=== PATIENT | male | born 1940 | race Caucasian/White ===

== ENCOUNTER → 2016-08-20 | Day surgery (SDC) | payer OTHER ==
[2016-08-10 09:34] VITALS: BMI 21.0
--- NOTE | 2016-08-10 10:00 | PAT Medication Instructions ---
Service Date Aug 10, 2016. Current Home Medication List Acetaminophen (Tylenol), 1 TAB PO PRN Alendronate Sodium (Alendronate Sodium), 1 TAB PO WK Amlodipine (Norvasc), 10 MG PO QAM Calcitriol (Rocaltrol Cap), 0.25 MCG PO QAM Cholecalciferol (Vitamin D3), 1 CAP PO QAM Cranberry-Vitamin C (Azo Cranbery Urinary Trac 250-60 mg), 1 CAP PO QAM Fenofibrate (Tricor ), 134 MG PO DAILY Levothyroxine Sodium (Synthroid), 50 MCG PO QAM Losartan Potassium (Losartan Potassium), 50 MG PO QAM Magnesium Oxide (Mg Supplement (Magox 400), 1 TAB PO TID Oxycodone/Acetaminophen 5MG/325MG (Percocet 5MG/325MG), 1-2 TABLETS PO Q4H PRN for Pain Oyster Shell (Calcium), 1 TAB PO TID Phenazopyridine HCl (Pyridium), 200 MG PO TID PRN for PRN Tamsulosin HCl (Tamsulosin HCl), 0.4 MG PO QPM [Lupron Depot], 45 MG IM UD [Oxybutynin], 5 MG PO TID Medication Instructions For Your Scheduled Surgery - Continue as usual: Alendronate Sodium (Alendronate Sodium), 1 TAB PO WK (Saturdays) [Lupron Depot], 45 MG IM UD - Hold the following medications the morning of surgery: [Oxybutynin], 5 MG PO TID Oyster Shell (Calcium), 1 TAB PO TID Magnesium Oxide (Mg Supplement (Magox 400), 1 TAB PO TID Calcitriol (Rocaltrol Cap), 0.25 MCG PO QAM Cholecalciferol (Vitamin D3), 1 CAP PO QAM Fenofibrate (Tricor ), 134 MG PO DAILY Losartan Potassium (Losartan Potassium), 50 MG PO QAM Cranberry-Vitamin C (Azo Cranbery Urinary Trac 250-60 mg), 1 CAP PO QAM Amlodipine (Norvasc), 10 MG PO QAM - Take the following medications the morning of surgery with a sip of water: Acetaminophen (Tylenol), 1 TAB PO PRN Phenazopyridine HCl (Pyridium), 200 MG PO TID PRN for PRN Levothyroxine Sodium (Synthroid), 50 MCG PO QAM Oxycodone/Acetaminophen 5MG/325MG (Percocet 5MG/325MG), 1-2 TABLETS PO Q4H PRN for Pain (okay to take up to 4 hours prior to surgery if needed) - Take the following medications as scheduled the night before surgery: Acetaminophen (Tylenol), 1 TAB PO PRN [Oxybutynin], 5 MG PO TID' Tamsulosin HCl (Tamsulosin HCl), 0.4 MG PO QPM Phenazopyridine HCl (Pyridium), 200 MG PO TID PRN for PRN Oyster Shell (Calcium), 1 TAB PO TID Magnesium Oxide (Mg Supplement (Magox 400), 1 TAB PO TID Oxycodone/Acetaminophen 5MG/325MG (Percocet 5MG/325MG), 1-2 TABLETS PO Q4H PRN for Pain If you have any questions please call us at [phone] (Leanna Clifford PA-C ) or [phone] or [phone]
[2016-08-10 10:36] LABS: BASO % 0.4 %; BASO ABS # 0.02 K/uL (0-0.2); COMPLETE YES; EOS % 3.9 %; HEMATOCRIT 35.1 % (42-52); IG% 0.2 %; LYMPH ABS # 0.92 K/uL (1.2-3.4); MEAN CELL VOLUME 93.6 fL (80-100); MEAN CORPUSCULAR HEMOGLOBIN 31.5 pg (25-34); MEAN CORPUSCULAR HGB CONC 33.6 g/dl (32-36); MEAN PLATELET VOLUME 9.3 fL (7.4-10.4); NEUT % 68.5 %; PLATELET COUNT 282 K/uL (130-400); RED BLOOD COUNT 3.75 M/uL (4.7-6.1); WHITE BLOOD COUNT 5.42 K/uL (4.8-10.8)
[2016-08-10 10:41] LABS: URINE APPEARANCE CLOUDY (CLEAR); URINE BILIRUBIN NEG (NEG); URINE COLOR YELLOW; URINE EPITHELIAL CELL AUTO 0-5 /lpf (0-5); URINE NITRITE POS (NEG); URINE SPECIFIC GRAVITY 1.013 (1.000-1.030); UROBILINOGEN NEG (NEG)
[2016-08-10 10:42] LABS: MANUAL MICROSCOPIC REQUIRED? NO; REVIEW REQ? YES
[2016-08-10 11:16] LABS: BUN/CREATININE RATIO 19.4 (10-20); CALCIUM 8.3 mg/dl (8.5-10.1); CREATININE 1.7 mg/dl (0.60-1.40); POTASSIUM 4.8 mmol/L (3.5-5.1)
[2016-08-10 11:20] LABS: PROSTATE SPECIFIC ANTIGEN 0.303 ng/ml (0.000-4.000)
[~2016-08-20] VITALS: Ht 167.6 cm; Wt 61.1 kg
[~2016-08-20] MED LIST: ACET-1256 PO; ALEN5SOL PO; AMLO-114 PO; ATROPINE SULFATE 0.1 MG/ML 5ML SYR IV PRN; CALC0.25 PO; CALC1CAP24 PO; CHOL2000 PO; CIPROFLOXACIN / D5W 400 MG IV SCH; CONRAY 30% 150ML BOTTLE INSTIL ONE; CRAN1CAP24 PO; CZR50 PO; EpHEDrine SULFATE INJ 50 MG/ML AMP IV PRN; EpHEDrine SULFATE INJ 50 MG/ML AMP ONE; FENO134C2 PO; FENTANYL CITRATE INJ 50 MCG/1 ML 2 ML VIAL ONE; FLM4 PO; FSM70 PO; LACTATED RINGER'S 1000ML 1,000 ML IV SCH; LEVO50TA PO; LIDOCAINE HCL 2% 2 ML VIAL (20MG/ML) ONE; LUPRON DEPOT IM; MAGN10TA PO; MIDAZOLAM HCL 1 MG/ML 2ML VIAL ONE; NITR-5 PO; ONDANSETRON INJ 2 MG/ML 2 ML VIAL ONE; OXYBUTYNIN PO; OXYC-57 PO; OXYCODONE/ACETAMINOPHEN 5-325 TAB PO PRN; OYST500T47 PO; PHEN-876 PO; PROPOFOL IV EMULSION 10 MG/ML 20 ML VIAL IV ONE; PUMP1CAP PO
[2016-08-20 11:46] VITALS: BMI 21.0
[2016-08-20 11:49] VITALS: BP 147/89; PULSE 67; TEMP 36.5; Ht 167.6 cm; Wt 61.1 kg
--- NOTE | 2016-08-20 12:54 | History & Physical Bridge Note ---
H&P Re-Evaluation Bridge Note: I have examined the patient, reviewed the History & Physical and in the interval since the performance of the History & Physical I have noted the following changes of clinical significance: No changes noted
--- NOTE | 2016-08-20 14:00 | [facility] Post Operative Brief Note ---
Immediate Operative Summary Operative Date Aug 20, 2016. Pre-Operative Diagnosis Bilateral Ureteral Obstruction Post-Operative Diagnosis Bilateral Ureteral Obstruction Procedure(s) Performed Cystoscopy, Bilateral Retrograde Pyleogram with Bilateral Ureteral Stent Change Surgeon Dr. Jose Guadalupe Patel Web Developer Programmer Surgeon(s) None Estimated Blood Loss Zero Findings bilateral stents Specimens No Specimen Drains 6f multi length stents
--- NOTE | 2016-08-20 14:03 | Discharge Instructions ---
Discharge Instructions Visit Reason for Visit: Hydronephrosis Discharge Discharge Diagnosis / Problem: ureteral obstruction Discharge Goals Goal(s): Therapeutic intervention Activity Recommendations Activity Limitations: resume your previous activity (take it easy today) Anesthesia . Post Anesthesia Instructions: If you have had General Anesthesia or IV Sedation: * Do not drive today. * Resume driving when surgeon permits. * Do not make important decisions or sign legal documents today. * Call surgeon for: 1. Temperature elevations greater than 101 degrees F. 2. Uncontrollable pain. 3. Excessive bleeding. 4. Persistent nausea and vomiting. 5. Medication intolerance (nausea, vomiting or rash). * For nausea and vomiting use only clear liquids such as: tea, soda, bouillon until nausea subsides, then gradually increase diet as tolerated. * If you have any concerns or questions, call your surgeon's office. If physician is unavailable and it is an emergency, call 911 or go to the nearest emergency room. . Diet Recommendations Recommended Home Diet: resume previous diet Procedures Procedures Performed: Cystoscopy, Bilateral Retrograde Pyleogram with Bilateral Ureteral Stent Change Pending Studies Studies pending at discharge: no Medical Emergencies . Who to Call and When: Medical Emergencies: If at any time you feel your situation is an emergency, please call 911 immediately. . Non-Emergent Contact Non-Emergency issues call your: Urologist . . "Provider Documentation" section prepared by Jose Guadalupe Patel.
--- NOTE | 2016-08-20 14:12 | DIAGNOSTIC IMAGING REPORT ---
RETROGRADE INCLUDES KUB CLINICAL HISTORY: RETROGRADE BILATERAL STENTS COMPARISON STUDY: 08/20/2016 FINDINGS: 2 intraoperative fluoroscopic spot images are provided for interpretation. 8 seconds of fluoroscopic time was utilized. Image #2 demonstrates a guidewire within a left lower pole calyx. There is left-sided hydronephrosis. Image #3 demonstrates the proximal portion of a right-sided nephroureteral stent. There is right-sided hydronephrosis. IMPRESSION: Bilateral hydronephrosis. Electronically signed by: Wilbert Samuel M.D. 08/20/2016 2:10 PM Dictated Date/Time: 08/20/2016 2:09 PM
--- NOTE | 2016-08-20 14:26 | Anesthesiology Progress Note ---
Anesthesia Post Op Note Date & Time Aug 20, 2016 at 14:26 Vital Signs Vital Signs Past 12 Hours Date Time Temp Pulse Resp B/P Pulse Ox O2 Delivery O2 Flow Rate FiO2 08/20/16 11:49 36.5 67 16 147/89 Room Air Notes Mental Status: alert / awake / arousable, participated in evaluation Pt Amnestic to Procedure: Yes Nausea / Vomiting: adequately controlled Pain: adequately controlled Airway Patency, RR, SpO2: stable & adequate BP & HR: stable & adequate Hydration State: stable & adequate Anesthetic Complications: no major complications apparent
[2016-08-20 14:55] VITALS: BP 123/77; PULSE 63; TEMP 37; O2SAT 93
[2016-08-20 15:25] VITALS: BP 130/85; PULSE 74; O2SAT 95
[2016-08-20 15:55] VITALS: BP 135/80; PULSE 68; TEMP 36.8; O2SAT 94
--- NOTE | 2016-08-21 12:19 | OPERATIVE REPORT ---
DATE OF OPERATION: 08/20/2016 PREOPERATIVE DIAGNOSIS: Bilateral ureteral obstruction secondary to metastatic prostate cancer. POSTOPERATIVE DIAGNOSIS: Same. PROCEDURE: Cystoscopy, bilateral retrograde pyelograms, bilateral stent exchanges. FINDINGS: Cystoscopic exam revealed normal urethra. Prostatic fossa was open. Bladder showed some edema from the stents. Left and right retrograde showed hydronephrosis. SURGEON: Dr. Patel. ANESTHESIA: General. DRAINS: 6 Portuguese by multilength left and right ureteral stents. COMPLICATIONS: None. SPECIMENS: Explanted stents left and right. INDICATIONS: The patient is a 76-year-old white male with metastatic prostate cancer causing bilateral ureteral obstruction, who has been treated with stent exchanges. He is being brought in now for stent exchange. PROCEDURE: After the induction of an adequate general anesthetic and appropriate time-out, the patient was placed in the dorsal lithotomy position, lower abdomen and genitalia were prepped with Hibiclens and draped in a sterile fashion. Using a 22-Portuguese cystoscope, routine cystoscopic exam was performed with the above noted findings with the 30 and 70 degree lenses. Next, the left stent was grasped, brought out through the urethra and then through the stent a 0.038 guidewire was passed under fluoroscopic guidance through the stent up the left ureter until positioned in the renal pelvis. The stent was removed. A 5-Portuguese Fulton catheter was advanced over the wire. The wire was removed and retrograde pyelogram was done to confirm placement of the wire within the renal pelvis. Once this was confirmed, the wire was rethreaded through the Fulton catheter, which was removed. The guidewire was then rethreaded through the cystoscope and a 6-Portuguese multilength stent was passed over the guidewire under fluoroscopic guidance until positioned in the renal pelvis. The guidewire was removed. There was a good curl at the bladder level. An identical procedure was then performed on the right hand side. After completing both stent exchanges, the patient's bladder was drained, cystoscope and sheath were removed. All needle, sponge and instrument counts were correct at the end of the case. The patient tolerated the procedure well and went to the recovery room in stable condition. I attest to the content of the Intraoperative Record and any orders documented therein. Any exceptio ns are noted below.
== END | disposition home or self-care (01) ==
LOC: C.ACU 11:17
PROVIDERS: ATTEND Urology
DX: C61 Malignant neoplasm of prostate (principal); N13.1 Hydronephrosis with ureteral stricture, not elsewhere classified; E03.9 Hypothyroidism, unspecified; J44.9 Chronic obstructive pulmonary disease, unspecified; I10 Essential (primary) hypertension; D64.9 Anemia, unspecified

== ENCOUNTER 2017-03-04 06:53 | Day surgery (SDC) | payer OTHER ==
[2017-02-18 11:35] VITALS: BMI 21.0
--- NOTE | 2017-02-18 12:03 | PAT Medication Instructions ---
Service Date Feb 18, 2017. Current Home Medication List Acetaminophen (Tylenol), 1 TAB PO PRN Alendronate Sodium (Alendronate Sodium), 1 TAB PO SATURDAY Amlodipine (Norvasc), 10 MG PO QAM Calcitriol (Rocaltrol Cap), 0.25 MCG PO QAM Calcium (Calcium), 500 MG PO QAM Cholecalciferol (Vitamin D3), 1 CAP PO QAM Cranberry-Vitamin C (Azo Cranbery Urinary Trac 250-60 mg), 1 CAP PO QAM Levothyroxine Sodium (Synthroid), 50 MCG PO QAM Losartan Potassium (Losartan Potassium), 50 MG PO QAM Magnesium Oxide (Mg Supplement (Magox 400), 1 TAB PO TID Tamsulosin HCl (Tamsulosin HCl), 0.4 MG PO QPM [Lupron Depot], 45 MG IM UD [Oxybutynin], 5 MG PO TID Medication Instructions For Your Scheduled Surgery - Continue as directed: [Lupron Depot], 45 MG IM UD every 6 months Alendronate Sodium (Alendronate Sodium), 1 TAB PO SATURDAY - Hold the following medications 02/19/2017: Cranberry-Vitamin C (Azo Cranbery Urinary Trac 250-60 mg), 1 CAP PO QAM - Hold the following medications the morning of surgery: [Oxybutynin], 5 MG PO TID Magnesium Oxide (Mg Supplement (Magox 400), 1 TAB PO TID Losartan Potassium (Losartan Potassium), 50 MG PO QAM Calcitriol (Rocaltrol Cap), 0.25 MCG PO QAM Calcium (Calcium), 500 MG PO QAM Cholecalciferol (Vitamin D3), 1 CAP PO QAM - Take the following medications the morning of surgery with a sip of water: Levothyroxine Sodium (Synthroid), 50 MCG PO QAM Amlodipine (Norvasc), 10 MG PO QAM Acetaminophen (Tylenol), 1 TAB PO PRN (if needed) - Take the following medications as scheduled the night before surgery: [Oxybutynin], 5 MG PO TID Tamsulosin HCl (Tamsulosin HCl), 0.4 MG PO QPM Magnesium Oxide (Mg Supplement (Magox 400), 1 TAB PO TID Acetaminophen (Tylenol), 1 TAB PO PRN (if needed) If you have any questions please call us at [phone] or [phone] or [phone]
[2017-02-18 12:21] LABS: BASO % 0.9 %; BASO ABS # 0.05 K/uL (0-0.2); COMPLETE YES; EOS % 2.8 %; HEMATOCRIT 31.2 % (42-52); IG% 0.2 %; LYMPH % 18.7 %; MEAN CELL VOLUME 96.6 fL (80-100); MEAN CORPUSCULAR HEMOGLOBIN 32.2 pg (25-34); MEAN CORPUSCULAR HGB CONC 33.3 g/dl (32-36); MONO % 10.1 %; NEUT % 67.3 %; PLATELET COUNT 284 K/uL (130-400); RED BLOOD COUNT 3.23 M/uL (4.7-6.1); WHITE BLOOD COUNT 5.34 K/uL (4.8-10.8)
[2017-02-18 12:44] LABS: BUN/CREATININE RATIO 16.1 (10-20); CALCIUM 8.3 mg/dl (8.5-10.1); CREATININE 2.5 mg/dl (0.60-1.40); POTASSIUM 4.4 mmol/L (3.5-5.1)
--- NOTE | 2017-02-18 13:17 | DIAGNOSTIC IMAGING REPORT ---
CHEST PREADMISSION(PA/LAT) CLINICAL HISTORY: 76 years-old Male presenting with preadmission chest x-ray. TECHNIQUE: PA and lateral views of the chest were obtained. COMPARISON: None. FINDINGS: Cardiomediastinal silhouette remarkable for tortuosity of the descending thoracic aorta. Lungs and pleural spaces clear. Osseous structures normal. Partially visualized bilateral nephroureteral tubes. IMPRESSION: 1. No acute cardiopulmonary disease. Electronically signed by: Carlos Harrell 02/18/2017 1:16 PM Dictated Date/Time: 02/18/2017 1:14 PM
[~2017-03-04] VITALS: Ht 167.6 cm; Wt 59.2 kg
[~2017-03-04 06:53] MED LIST changes: -ALEN5SOL PO; -ATROPINE SULFATE 0.1 MG/ML 5ML SYR IV PRN; -CONRAY 30% 150ML BOTTLE INSTIL ONE; -EpHEDrine SULFATE INJ 50 MG/ML AMP IV PRN; -EpHEDrine SULFATE INJ 50 MG/ML AMP ONE; -FENO134C2 PO; -FENTANYL CITRATE INJ 50 MCG/1 ML 2 ML VIAL ONE; -LIDOCAINE HCL 2% 2 ML VIAL (20MG/ML) ONE; -MIDAZOLAM HCL 1 MG/ML 2ML VIAL ONE; -NITR-5 PO; -ONDANSETRON INJ 2 MG/ML 2 ML VIAL ONE; -OXYC-57 PO; -OXYCODONE/ACETAMINOPHEN 5-325 TAB PO PRN; -OYST500T47 PO; -PHEN-876 PO; -PROPOFOL IV EMULSION 10 MG/ML 20 ML VIAL IV ONE; -PUMP1CAP PO
[2017-03-04 07:16] VITALS: BP 125/80; PULSE 80; TEMP 36.7; O2SAT 96; Ht 167.6 cm; Wt 59.2 kg
[2017-03-04] MEDS ORDERED: CONRAY 30% 150ML BOTTLE ONE (07:48)
[2017-03-04] MEDS ORDERED: EpHEDrine SULFATE INJ 50 MG/ML AMP IV PRN (08:15)
[2017-03-04] MEDS ORDERED: HYDROmorphone INJ 1 MG/ML SYR IV PRN (08:15)
[2017-03-04] MEDS ORDERED: ONDANSETRON INJ 2 MG/ML 2 ML VIAL IV PRN (08:15)
[2017-03-04] MEDS ORDERED: ATROPINE SULFATE 0.1 MG/ML 5ML SYR IV PRN (08:15)
[2017-03-04] MEDS ORDERED: MEPERIDINE HCL 25 MG/ML CARP IV PRN (08:15)
[2017-03-04] MEDS ORDERED: FENTANYL CITRATE INJ 50 MCG/1 ML 2 ML VIAL IV PRN (08:15)
[2017-03-04] MEDS ORDERED: LABETALOL HCL IV 5 MG/ML 20ML IV PRN (08:15)
[2017-03-04] MEDS ORDERED: PROPOFOL IV EMULSION 10 MG/ML 20 ML VIAL IV ONE (08:21)
[2017-03-04] MEDS ORDERED: ONDANSETRON INJ 2 MG/ML 2 ML VIAL ONE (08:21)
[2017-03-04] MEDS ORDERED: MIDAZOLAM HCL 1 MG/ML 2ML VIAL ONE (08:21)
[2017-03-04] MEDS ORDERED: FENTANYL CITRATE INJ 50 MCG/1 ML 2 ML VIAL ONE (08:21)
[2017-03-04] MEDS ORDERED: DEXAMETHASONE SOD INJ 4 MG/ML VIAL ONE (08:21)
[2017-03-04] MEDS ORDERED: LIDOCAINE HCL 2% 2 ML VIAL (20MG/ML) ONE (08:21)
[2017-03-04] MEDS ORDERED: EpHEDrine SULFATE 50MG/5ML SYR ONE (08:49)
--- NOTE | 2017-03-04 09:09 | [facility] Post Operative Brief Note ---
Immediate Operative Summary Operative Date Mar 04, 2017. Pre-Operative Diagnosis Bilateral ureteral obstruction Post-Operative Diagnosis Same Procedure(s) Performed Bilateral stent exchanges Surgeon Amanda Drug Room Clerk Surgeon(s) none Estimated Blood Loss none Findings bilateral hydronephrosis Specimens stents Drains 6f multilength stents Anesthesia gen Complication(s) None Disposition Recovery Room / PACU
[2017-03-04] MEDS ORDERED: OXYC-57 PO (09:10)
--- NOTE | 2017-03-04 09:11 | Discharge Instructions ---
Discharge Instructions Date of Service Mar 04, 2017. Visit Reason for Visit: Hydronephrosis Discharge Discharge Diagnosis / Problem: bilateral hydro Discharge Goals Goal(s): Therapeutic intervention Activity Recommendations Activity Limitations: resume your previous activity (take it easy today) Anesthesia . Post Anesthesia Instructions: If you have had General Anesthesia or IV Sedation: * Do not drive today. * Resume driving when surgeon permits. * Do not make important decisions or sign legal documents today. * Call surgeon for: 1. Temperature elevations greater than 101 degrees F. 2. Uncontrollable pain. 3. Excessive bleeding. 4. Persistent nausea and vomiting. 5. Medication intolerance (nausea, vomiting or rash). * For nausea and vomiting use only clear liquids such as: tea, soda, bouillon until nausea subsides, then gradually increase diet as tolerated. * If you have any concerns or questions, call your surgeon's office. If physician is unavailable and it is an emergency, call 911 or go to the nearest emergency room. . Diet Recommendations Recommended Home Diet: resume previous diet Procedures Procedures Performed: Bilateral stent exchanges Pending Studies Studies pending at discharge: no Medical Emergencies . Who to Call and When: Medical Emergencies: If at any time you feel your situation is an emergency, please call 911 immediately. . Non-Emergent Contact Non-Emergency issues call your: Urologist . . "Provider Documentation" section prepared by Jose Guadalupe Patel. . [place] Drug Monitoring Program Search Results: patient reviewed within database
--- NOTE | 2017-03-04 09:13 | DIAGNOSTIC IMAGING REPORT ---
RETROGRADE INCLUDES KUB CLINICAL HISTORY: 76 years-old Male presenting with BILAT STENT EXCHANGE. TECHNIQUE: 6 fluoroscopic spot image(s) obtained as part of intraoperative procedure. COMPARISON: 08/20/2016. FINDINGS/IMPRESSION: A guidewire was introduced into the left urinary collecting system to the level of the renal pelvis. Contrast was injected into the left renal collecting system, which was dilated calyceal blunting as on prior exam. A left ureteral stent was placed at the conclusion of the procedure. Subsequently a guidewire was introduced into the right urinary collecting system and similar findings of dilation calyceal blunting with stent exchange. Please see surgical report for further details. Fluoroscopy dosage (mGy): Not available. Fluoroscopy time: 1 minute 22 seconds. Number of fluoroscopic spot images: 6. Electronically signed by: Carlos Harrell M.D. 03/04/2017 9:11 AM Dictated Date/Time: 03/04/2017 9:09 AM
[2017-03-04] MEDS ORDERED: OXYCODONE/ACETAMINOPHEN 5-325 TAB PO PRN (09:15)
[2017-03-04 09:50] VITALS: BP 106/74; PULSE 90; TEMP 36.3; O2SAT 95
--- NOTE | 2017-03-04 10:02 | Anesthesiology Progress Note ---
Anesthesia Post Op Note Date & Time Mar 04, 2017 at 10:02 Vital Signs Pain Intensity: 0 Vital Signs Past 12 Hours Date Time Temp Pulse Resp B/P (MAP) Pulse Ox O2 Delivery O2 Flow Rate FiO2 03/04/17 09:50 36.3 90 18 106/74 95 Room Air 03/04/17 09:40 36.3 87 16 105/71 95 Room Air 03/04/17 09:35 36.3 91 16 109/75 94 Room Air 03/04/17 09:25 93 16 98/72 100 Oxymask 10 03/04/17 09:15 86 16 93/61 100 Oxymask 10 03/04/17 09:06 36.4 72 16 95/60 100 Oxymask 10 03/04/17 07:16 36.7 80 18 125/80 (95) 96 Room Air Notes Mental Status: alert / awake / arousable, participated in evaluation Pt Amnestic to Procedure: Yes Nausea / Vomiting: adequately controlled Pain: adequately controlled Airway Patency, RR, SpO2: stable & adequate BP & HR: stable & adequate Hydration State: stable & adequate Anesthetic Complications: no major complications apparent
[2017-03-04 10:20] VITALS: BP 103/70; PULSE 81; O2SAT 94
[2017-03-04 10:50] VITALS: BP 101/71; PULSE 85; TEMP 36.3; O2SAT 95
--- NOTE | 2017-03-04 13:14 | OPERATIVE REPORT ---
DATE OF OPERATION: 03/04/2017 PREOPERATIVE DIAGNOSIS: Bilateral ureteral obstruction secondary to metastatic prostate cancer. POSTOPERATIVE DIAGNOSIS: Same. PROCEDURES: Cystoscopy, bilateral retrograde pyelograms and bilateral stent exchanges. FINDINGS: Cystoscopic exam revealed normal anterior urethra. Prostatic fossa was large. Bladder showed some edema from the stents. Retrograde showed bilateral hydronephrosis. SURGEON: Dr. Jose Guadalupe Patel. ANESTHESIA: General. DRAINS: 6-Georgian multilength stents, left and right ureter. COMPLICATIONS: None. SPECIMENS: None. INDICATIONS: The patient is a 76-year-old white male with obstruction of both ureters from metastatic prostate cancer, who has been managed with stent exchanges. He is being brought in now for his stent exchange. DESCRIPTION OF PROCEDURE: After the induction of an adequate general anesthetic and appropriate time-out, the patient was placed in the dorsal lithotomy position. Lower abdomen and genitalia were prepped with Hibiclens and draped in a sterile fashion. Using a 22-Georgian cystoscope, a routine cystoscopic exam was performed with the above noted findings with the 30 and 70 degree lenses. Next, the left stent was grasped with alligator forceps and brought out the meatus. Then, under fluoroscopic guidance, a 0.03 guidewire was passed through this catheter and up the left ureter until positioned in the renal pelvis confirmed by fluoroscopy. The old stent was removed and a 5-Georgian open-ended catheter was passed over the wire until positioned in the renal pelvis. The wire was removed and a retrograde pyelogram was performed confirming that the wire was in the renal pelvis. After completing this, the guidewire was rethreaded through the open-ended catheter, which was removed and then rethreaded through the cystoscope and a 6-Georgian multilength stent was passed under fluoroscopic guidance up the left ureter until positioned in the renal pelvis. The guidewire was removed. There was good curl at the bladder level. An identical procedure was then performed on the right hand side. After completing both stent exchanges, the patient's bladder was drained. Cystoscope and sheath were removed. All needle, sponge and instrument counts were correct at the end of the case. The patient tolerated the procedure well and went to the recovery room in stable condition. I attest to the content of the Intraoperative Record and any orders documented therein. Any exception s are noted below.
== END 2017-03-04 10:45 | disposition home or self-care (01) ==
LOC: C.ACU 06:53
PROVIDERS: ATTEND Urology
DX: N13.1 Hydronephrosis with ureteral stricture, not elsewhere classified (principal); C61 Malignant neoplasm of prostate; I10 Essential (primary) hypertension; J44.9 Chronic obstructive pulmonary disease, unspecified; E78.5 Hyperlipidemia, unspecified; E83.42 Hypomagnesemia; E03.9 Hypothyroidism, unspecified; E83.51 Hypocalcemia; D50.9 Iron deficiency anemia, unspecified; E55.9 Vitamin D deficiency, unspecified; M81.0 Age-related osteoporosis without current pathological fracture; Z87.891 Personal history of nicotine dependence

== ENCOUNTER → 2017-07-17 | Outpatient (CLI) | payer OTHER ==
[~2017-07-17] MED LIST changes: -CIPROFLOXACIN / D5W 400 MG IV SCH; -LACTATED RINGER'S 1000ML 1,000 ML IV SCH; +OXYC-57 PO
[2017-07-17 18:19] LABS: COMPLETE YES; HEMATOCRIT 34.7 % (42-52); IG% 0.9 %; LYMPH % 4.5 %; LYMPH ABS # 0.58 K/uL (1.2-3.4); MEAN CELL VOLUME 98.3 fL (80-100); MEAN CORPUSCULAR HEMOGLOBIN 31.4 pg (25-34); MEAN PLATELET VOLUME 9.4 fL (7.4-10.4); MONO % 1.9 %; NEUT % 92.7 %; PLATELET COUNT 526 K/uL (130-400); RED BLOOD COUNT 3.53 M/uL (4.7-6.1); WHITE BLOOD COUNT 12.91 K/uL (4.8-10.8)
[2017-07-17 18:26] LABS: URINE APPEARANCE CLEAR (CLEAR); URINE BILIRUBIN NEG (NEG); URINE COLOR YELLOW; URINE NITRITE NEG (NEG); URINE SPECIFIC GRAVITY 1.015 (1.000-1.030); UROBILINOGEN NEG (NEG)
[2017-07-17 18:27] LABS: BLOOD UREA NITROGEN 40 mg/dl (7-18); CARBON DIOXIDE 25 mmol/L (21-32); CHLORIDE 104 mmol/L (98-107); CREATININE 2.08 mg/dl (0.60-1.40); GLUCOSE 136 mg/dl (70-99); SODIUM 135 mmol/L (136-145)
[2017-07-17 18:32] LABS: PROSTATE SPECIFIC ANTIGEN 0.798 ng/ml (0.000-4.000)
[2017-07-17 19:33] LABS: MANUAL MICROSCOPIC REQUIRED? NO; REVIEW REQ? NO
== END | disposition home or self-care (01) ==
LOC: C.LABMFLN 13:56
PROVIDERS: ATTEND Urology
DX: R33.9 Retention of urine, unspecified (principal); C61 Malignant neoplasm of prostate

== ENCOUNTER 2017-07-29 10:52 | Day surgery (SDC) | payer OTHER ==
[2017-07-23 08:28] VITALS: BMI 22.0
[~2017-07-29] VITALS: Ht 165.1 cm; Wt 61.4 kg
[~2017-07-29 10:52] MED LIST changes: +ADVIN25/60 INH; +ASPI81TA28 PO; +ATROPINE SULFATE 0.1 MG/ML 5ML SYR IV PRN; +DTR/5 PO; +EpHEDrine SULFATE INJ 50 MG/ML AMP IV PRN; +FENTANYL CITRATE INJ 50 MCG/1 ML 2 ML VIAL IV PRN; -MAGN10TA PO; +MAGN400T6 PO; +ONDANSETRON INJ 2 MG/ML 2 ML VIAL IV PRN; -OXYBUTYNIN PO; -OXYC-57 PO; +SODIUM CHLORIDE 0.9% 1000ML 1,000 ML IV SCH
[2017-07-29 11:55] VITALS: BP 147/96; PULSE 80; TEMP 37; O2SAT 95; Ht 165.1 cm; Wt 61.4 kg
[2017-07-29] MEDS: CIPROFLOXACIN / D5W 400 MG IV SCH ×3 (13:02→14:35)
[2017-07-29] MEDS ORDERED: FENTANYL CITRATE INJ 50 MCG/1 ML 2 ML VIAL ONE (14:28)
[2017-07-29] MEDS ORDERED: MIDAZOLAM HCL 1 MG/ML 2ML VIAL ONE (14:29)
[2017-07-29] MEDS ORDERED: PROPOFOL IV EMULSION 10 MG/ML 20 ML VIAL IV ONE (14:56)
[2017-07-29] MEDS ORDERED: CONRAY 30% 150ML BOTTLE ONE (14:56)
[2017-07-29] MEDS ORDERED: OXYC-57 PO (15:17)
--- NOTE | 2017-07-29 15:18 | Discharge Instructions ---
Discharge Instructions Date of Service Jul 29, 2017. Visit Reason for Visit: Hydronephrosis Discharge Discharge Diagnosis / Problem: Hydronephrosis Discharge Goals Goal(s): Therapeutic intervention Activity Recommendations Activity Limitations: resume your previous activity (take it eas today) Exercise/Sports Limitations: rest today May Resume Sexual Activity: when tolerated Shower/Bathe: no limitations Driving or Machine Use: resume 1 day after discharge Anesthesia . Post Anesthesia Instructions: If you have had General Anesthesia or IV Sedation: * Do not drive today. * Resume driving when surgeon permits. * Do not make important decisions or sign legal documents today. * Call surgeon for: 1. Temperature elevations greater than 101 degrees F. 2. Uncontrollable pain. 3. Excessive bleeding. 4. Persistent nausea and vomiting. 5. Medication intolerance (nausea, vomiting or rash). * For nausea and vomiting use only clear liquids such as: tea, soda, bouillon until nausea subsides, then gradually increase diet as tolerated. * If you have any concerns or questions, call your surgeon's office. If physician is unavailable and it is an emergency, call 911 or go to the nearest emergency room. . Diet Recommendations Recommended Home Diet: resume previous diet Procedures Procedures Performed: Cystoscopy, Bilateral Retrograde Pyelogram, Bilateral Stent Pending Studies Studies pending at discharge: no Medical Emergencies . Who to Call and When: Medical Emergencies: If at any time you feel your situation is an emergency, please call 911 immediately. . Non-Emergent Contact Non-Emergency issues call your: Urologist Call Non-Emergent contact if: temperature is above 101.5 . . "Provider Documentation" section prepared by Jose Guadalupe Patel. . [place] Drug Monitoring Program Search Results: patient reviewed within database
--- NOTE | 2017-07-29 15:28 | Anesthesiology Progress Note ---
Anesthesia Post Op Note Date & Time Jul 29, 2017 at 15:28 Vital Signs Pain Intensity: 0 Vital Signs Past 12 Hours Date Time Temp Pulse Resp B/P (MAP) Pulse Ox O2 Delivery O2 Flow Rate FiO2 07/29/17 15:16 37.0 80 20 91/55 99 Room Air 07/29/17 11:55 37 80 20 147/96 (113) 95 Room Air Notes Mental Status: alert / awake / arousable, participated in evaluation Pt Amnestic to Procedure: Yes Nausea / Vomiting: adequately controlled Pain: adequately controlled Airway Patency, RR, SpO2: stable & adequate BP & HR: stable & adequate Hydration State: stable & adequate Anesthetic Complications: no major complications apparent
[2017-07-29] MEDS ORDERED: OXYCODONE/ACETAMINOPHEN 5-325 TAB PO PRN (15:30)
[2017-07-29 15:40] VITALS: BP 137/79; PULSE 77; TEMP 36.8; O2SAT 96
--- NOTE | 2017-07-29 15:56 | DIAGNOSTIC IMAGING REPORT ---
RETROGRADE INCLUDES KUB CLINICAL HISTORY: BILATERAL RETROGRADES AND STENTS COMPARISON STUDY: 03/04/2017 FINDINGS: 4 fluoroscopic spot images are provided for interpretation. 59 seconds of fluoroscopic time was utilized. Image #1 demonstrates the proximal pigtail of a right-sided nephroureteral stent. There is a guidewire projected over the left kidney. Image #2 demonstrates the proximal pigtail of a left-sided nephroureteral stent image #3 demonstrates dilatation of the right renal collecting system. There is a guidewire within upper pole calyx. Image #4 demonstrates the proximal pigtail of a right-sided nephroureteral stent IMPRESSION: Fluoroscopic spot images obtained during stent exchange. Electronically signed by: Wilbert Samuel M.D. 07/29/2017 3:55 PM Dictated Date/Time: 07/29/2017 3:54 PM
[2017-07-29 16:15] VITALS: BP 140/84; PULSE 80; O2SAT 94
[2017-07-29 16:52] VITALS: BP 144/92; PULSE 88; TEMP 36.5; O2SAT 95
[2017-07-29 17:30] VITALS: BP 159/83; PULSE 98; TEMP 36.3; O2SAT 96
--- NOTE | 2017-07-30 09:04 | [facility] Operative Report ---
Operative Report Operative Date Jul 29, 2017. Pre-Operative Diagnosis Bilateral Hydronephrosis Post-Operative Diagnosis Same as preoperative Procedure(s) Performed Cystoscopy, Bilateral Retrograde Pyelogram, Bilateral Stent Surgeon Dr. Cruz Training Lead Surgeon(s) None per surgeon Estimated Blood Loss 0ML Findings Cystoscopic exam revealed a normal urethra prostatic fossa was nonobstructing bladder showed up edema from prior stents retrograde showed bilateral hydro nephrosis Specimens None per surgeon Drains Six [place] by multi-length left and right ureteral stents Anesthesia MAC Complication(s) None Disposition Recovery Room / PACU Indications 77-year-old white male with metastatic prostate cancer causing bilateral ureteral obstruction here for bilateral stent change Description of Procedure After the induction of an adequate level of intravenous sedation an appropriate time-out patient was placed in the dorsal lithotomy position. Lower abdomen and genitalia was prepped with Hibiclens and draped in sterile fashion. Using a 22 [place] cystoscope the left stent was grasped and brought out through the urethra. A 0.038 guidewire was then passed through the stent under fluoroscopic guidance still position in the renal pelvis. The old stent was removed. Five [place] catheter was passed over the stent wire was removed. Retrograde was performed confirming presence in the renal pelvis. Guidewire was Re threaded through the open-ended catheter and then through the cystoscope and a 6 [place] multi-length stent was passed under fluoroscopic guidance up the left ureter to position the renal pelvis confirmed by fluoroscopy. Guidewire was removed there was a good curl at the bladder level. An identical procedure was performed on the right-hand side. After completing this bladder was drained cystoscope and sheath removed. All needle sponge and instrument counts were correct at the end of the case. Patient tolerated the procedure well was taken recovery room in stable condition I attest to the content of the Intraoperative Record and any orders documented therein. Any exceptions are noted below.
== END 2017-07-29 17:45 | disposition home or self-care (01) ==
LOC: C.ACU 10:52
PROVIDERS: ATTEND Urology
DX: N13.30 Unspecified hydronephrosis (principal); C61 Malignant neoplasm of prostate; C80.1 Malignant (primary) neoplasm, unspecified; I10 Essential (primary) hypertension; N40.0 Benign prostatic hyperplasia without lower urinary tract symptoms; J44.9 Chronic obstructive pulmonary disease, unspecified; E78.5 Hyperlipidemia, unspecified; R33.9 Retention of urine, unspecified; D50.9 Iron deficiency anemia, unspecified; M81.0 Age-related osteoporosis without current pathological fracture; E55.9 Vitamin D deficiency, unspecified; Z87.891 Personal history of nicotine dependence; Z82.49 Family history of ischemic heart disease and other diseases of the circulatory system; Z80.0 Family history of malignant neoplasm of digestive organs